=== PATIENT | female | born 1955 | race Caucasian/White ===

== ENCOUNTER 2017-02-10 13:52 | Emergency (ER) | payer OTHER ==
[~2017-02-10] VITALS: Ht 152.4 cm; Wt 67.6 kg
[~2017-02-10 13:52] MED LIST: AMBIEN5 MG PO; CELEXA10 MG PO; CITALOPRAM HBR20 M1 PO; CLARITIN10 M3 PO; EDLUAR5 MG SL; FIORICET 50-301 EACH PO; FLOVENT DISKUS1 DIS2 IH; MINIPRESS2 MG PO; TIZANIDINE HCL2 M1 PO
[2017-02-10] MEDS ORDERED: KEFLEX500 MG PO (14:18)
[2017-02-10] MEDS ORDERED: ATARAX,VISTARIL25 MG PO (14:18)
[2017-02-10] MEDS ORDERED: MEDROL DOSEPAK4 MG PO (14:18)
[2017-02-10 14:47] VITALS: BP 120/79
== END 2017-02-10 14:47 | disposition home or self-care (01) ==
LOC: EME 13:52
DX: L03.116 Cellulitis of left lower limb (principal); L03.115 Cellulitis of right lower limb; L25.9 Unspecified contact dermatitis, unspecified cause; Z88.6 Allergy status to analgesic agent
CPT/HCPCS: 99281; 99283; Q0177

== ENCOUNTER 2017-04-05 12:03 | Day surgery (SDC) | payer OTHER ==
[~2017-04-05] VITALS: Ht 152.4 cm; Wt 64.8 kg
[~2017-04-05 12:03] MED LIST changes: +ATARAX,VISTARIL25 MG PO; +CINNAMON500 MG PO; +GINSENG100 MG PO; +KEFLEX500 MG PO; +MEDROL DOSEPAK4 MG PO; +VITAMIN B COMP1 EACH PO; +VITAMIN C1000 MG PO
[2017-04-05 12:34] VITALS: BP 114/73
[2017-04-05 17:50] VITALS: BP 131/70
[2017-04-05 19:39] VITALS: BP 126/67
== END 2017-04-05 19:53 | disposition home or self-care (01) ==
LOC: SDC 12:03
PROC: 0SBD4ZZ Excision of Left Knee Joint, Percutaneous Endoscopic Approach (ICD-10-PCS; principal; 2017-04-05)
DX: M17.12 Unilateral primary osteoarthritis, left knee (principal); M23.221 Derangement of posterior horn of medial meniscus due to old tear or injury, right knee; M23.201 Derangement of unspecified lateral meniscus due to old tear or injury, left knee; M23.42 Loose body in knee, left knee; G89.29 Other chronic pain; E78.5 Hyperlipidemia, unspecified; F43.10 Post-traumatic stress disorder, unspecified; Z88.8 Allergy status to other drugs, medicaments and biological substances
CPT/HCPCS: J1100; J1170; J1885; J2250; J2274; J2405; J3010